=== PATIENT | male | born 2000 ===

== ENCOUNTER 2025-02-14 09:52 | Outpatient (AMB) | payer OTHER, MEDICAID, SELFPAY ==
--- NOTE | 2025-02-14 10:05 | MHC.PC.OV ---
Vital Signs 02/14/25 10:06 Height 6 ft 3.2 in Weight 276 lb 8 oz BMI 34.4 BP 122/72 Blood Pressure Location Lt brachial Position Sitting Pulse 53 Pulse Source Pulse Oximeter Temp 97.5 F Temp Source Temporal Artery Scan Pulse Oximetry (%) 96 Oxygen Delivery Method Room Air Intake Visit Reasons: establish care Intake Note: Patient is a new patient here to establish care for Autism. Transferring care from Dr Titus ([facility]). Medical records have not been requested and have not received. 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 Autism Spectrum Disorder has been stable and managed with GLASS [employer]ENDER assistance, in place since adolescence. No chronic medical conditions such as hypertension, diabetes, or asthma have been previously diagnosed; no past surgical history is present. Dr. Suazo was the last healthcare provider seen by the patient two months ago, though the completion of any lab work has not been confirmed. Neurological evaluation in December was stable, indicating no follow-up was necessary unless new symptoms appear. Patient has a GLASS BLOCK BENDER through stab dose at helps with his activities of daily living such as dressing, cooking and basic errands patient benefits from the services. [facility] Surgical History No pertinent past surgical history Family History (Updated 02/14/25 @ 10:30 by Tiff Diop PA-C) Maternal Aunt Breast cancer Maternal Grandmother Cervical cancer Maternal Uncle Heart attack Social History Housing: House Alcohol intake: never Patient Tobacco Use Status: Never used Tobacco e-Cigarette/Vaping Use: Never Used Second Hand Smoke Exposure: No service: No Current occupational status: unemployed Cognitive needs: No Hearing needs: No Vision needs: Yes (Glasses) Questionnaire PHQ-9 Over the last 2 weeks, how often have you been bothered by any of the following problems? 1. Little interest or pleasure in doing things: not at all 2. Feeling down, depressed, or hopeless: not at all 3. Trouble falling or staying asleep, or sleeping too much: not at all 4. Feeling tired or having little energy: not at all 5. Poor appetite or overeating: not at all 6. Feeling bad about yourself - or that you are a failure or have let yourself or your family down: not at all 7. Trouble concentrating on things, such as reading the newspaper or watching television: not at all 8. Moving or speaking so slowly that other people could have noticed. Or the opposite - being so fidgety or restless that you have been moving around a lot more than usual: not at all 9. Thoughts that you would be better off or of hurting yourself in some way: not at all Total score: 0 Depression Screening Interpretation: Negative Depression Screening Done: Yes Source: Developed by Drs. Edmundo Mclain, Brooke Coreas, Mitch Kee and colleagues, with an educational albert from [employer]. Thrive Questionnaire Date Thrive assessed: 02/14/25 I am a: Patient What is your living situation today?: I have a steady place to live Within the past 12 months, did the food you bought not last and you didn't have the money to get more?: Never true Within the past 12 months, did you worry whether your food would run out before you got money to buy more?: Never true Do you have trouble paying for medicines?: No Do you have trouble getting transportation to medical appointments?: No Do you have trouble paying your heating and electricity bill?: Yes Do you have trouble taking care of your child, family member or friend?: No Do you have trouble with day-to-day activities such as bathing, preparing meals, shopping, managing finances, etc.?: Yes Are you currently unemployed and looking for a job?: I choose not to answer this question Are you interested in more education?: No Please select the resources that you would like help with: Utilities Currently or been in a relationship where the following occur: No concerns reported THRIVE Score: 1 AUDIT C Alcohol Use Questionnaire (AUDIT-C) 1. How often do you have a drink containing alcohol?: Never 2. How many drinks containing alcohol do you have on a typical day when you are drinking?: 1 or 2 3. How often do you have six or more drinks on one occasion?: Never Total Score: 0 VANESSA-7 AMB Questionnaire VANESSA-7 Date VANESSA - 7 assessed: 02/14/25 Feeling nervous, anxious, or on edge: 1 = Several days Not being able to stop or control worryin = Not at all Worrying too much about different things: 1 = Several days Trouble relaxin = Not at all Being so restless that it is hard to sit still: 1 = Several days Becoming easily annoyed or irritable: 1 = Several days Feeling afraid as if something awful might happen: 0 = Not at all Total VANESSA-7 score (0-4 normal; 5-9 mild; 10-14 moderate; 15-21 severe): 4 Source: Developed by Drs. Edmundo Mclain, Brooke Coreas, Mitch Kee and colleagues, with an educational albert from [employer]. VANESSA-7 Assessment Billing VANESSA-7 Assessment Tool: VANESSA-7 Assessment 28767 Review of Systems Const Denies body aches, Denies chills, Denies fever(s), Denies headache(s) and Denies poor appetite Eyes Reports no additional complaints ENT Denies dysphagia, Denies dizziness, Denies headache(s) and Denies odynophagia Card Denies chest pain, Denies syncope, Denies irregular heart rhythm, Denies lightheadedness and Denies dyspnea Resp Denies cough and Denies dyspnea GI Denies abdominal pain, Denies constipation, Denies dysphagia, Denies diarrhea, Denies nausea, Denies odynophagia and Denies vomiting Reports no additional complaints Musc Reports no additional complaints and Denies abnormal gait Skin/Breast Reports system reviewed and no additional complaints, except as documented Neuro Denies abnormal gait, Denies dizziness, Denies syncope and Denies headache(s) Psych Reports no additional complaints Physical exam (Primary Care) Vital Signs: Last Vital Signs Temp 97.5 F 02/14/25 10:06 Oxygen Delivery Method Room Air 02/14/25 10:06 BMI result Body Mass Index 34.4 Tobacco/Smoking Status: Tobacco use Status Patient Tobacco Use Status Never used Tobacco 02/14/25 10:05 Depression Screening Interpretation: Negative Thrive Assessment: Date of Thrive Assessment Date Thrive assessed 02/12/25 02/12/25 19:25 Currently or been in a relationship where the following occur: No concerns reported Const General: cooperative, healthy appearing, comfortable and no acute distress Orientation/consciousness: patient oriented x3 HENMT Head: Yes normocephalic Ears: hearing grossly normal bilaterally General nose exam: Normal external nose present Eyes General: appearance normal, both eyes and all related structures Conjunctivae: conjunctivae normal Neck Neck: Yes full ROM and Yes no lymphadenopathy Resp Effort & Inspection: normal respiratory effort Auscultation: clear to auscultation bilaterally, no crackles, no rales, no rhonchi and no wheezes Cardio Rate: regular rate Rhythm: regular rhythm Skin General skin exam: no rashes or lesions noted Neuro General: patient oriented x3 Gait exam (Neuro): Normal gait present Extrem General: Yes normal to inspection, Yes full ROM and No edema Psych Affect: normal affect Attitude: cooperative Insight: Good insight present (Psych) Judgement: Good judgement present (Psych) Coding Level of Care Code New Pt Level 3 (51481) Diagnoses Autism F84.0 Additional Codes VANESSA-7 Assessment Billing - VANESSA-7 Assessment Tool: VANESSA-7 Assessment 54442 ([id number]) Assessment & Plan Assessment & Plan (1) Autism: Code(s): F84.0 - Autistic disorder Category: Medical Plan: Patient was recently seen by a neurologist in [place] in December. He was considered stable and advised to follow up only as needed. He does receive services through [facility] for his activities of daily living and benefits from this service. He should continue with the services indefinitely and any paperwork that needs to be completed can be done by our office. Plan Patient recently had a physical with his last provider in December. The patient will be scheduled for a follow-up physical examination in 10 months to comply with annual health maintenance requirements. Blood work will be ordered for routine updates to the health profile. The patient may complete it at his convenience without fasting. If documentation for [employer] services is required, it can be signed and returned promptly. With the patient's Autism Spectrum Disorder being stable and screenings being negative, further intervention is not required unless new issues present. Regular follow-up will continue to ensure comprehensive preventive care. This note was constructed using voice recognition software. While every effort has been made to ensure accuracy and field radio operator, still areas may have been included sometimes these areas may affect the content or meeting of the given symptoms. Total time spent caring for the patient today was 20 minutes. This includes time spent before the visit reviewing the chart, time spent during the visit, and time spent after the visit and documentation. Patient was informed and verbally consented to the use of an ambient scribe for clinic note documentation during this visit.
[2025-02-14 10:06] VITALS: BP 122/72; PULSE 53; TEMP 36.4; O2SAT 96; BMI 34.4
== END 2025-02-14 10:39 | disposition home or self-care (01) ==
LOC: HO.HMCH 09:53
DX: F84.0 Autistic disorder (principal)

== ENCOUNTER → 2025-02-14 09:52 | Outpatient (BNVA) | payer OTHER, MEDICAID, SELFPAY | DX: F84.0 Autistic disorder (principal) | CPT/HCPCS: 96127 ==